=== PATIENT | male | born 1940 | race Caucasian/White ===

== ENCOUNTER 2016-11-04 02:02 | Inpatient (IN) | payer MEDICARE ==
[2016-11-04] MEDS ORDERED: ONDANSETRON HCL 4 MG/2 ML VIAL ONE (02:40)
[2016-11-04 02:41] LABS: BASOPHIL# 0.3 X 10^3uL (0.0-0.1); BASOPHILS 2.5 % (0.0-2.0); EOSINOPHILS 0.4 % (0.0-6.0); HEMATOCRIT 45.8 % (42.0-54.0); HEMOGLOBIN 15.7 g/dL (14.0-18.0); LYMPHOCYTES 7.3 % (20.0-40.0); LYMPHOCYTES# 0.8 X 10^3uL (0.8-3.8); MEAN CELL VOLUME 87.7 fL (80.0-100.0); MEAN CORPUS. HGB CONCENTRATION 34.3 g/dL (32.0-36.0); MEAN CORPUSCULAR HEMOGLOBIN 30.1 pg (29.0-35.0); MEAN PLATELET VOLUME 9.8 fL (7.4-10.4); MONOCYTES 6.9 % (2.0-10.0); MONOCYTES# 0.8 X 10^3uL (0.2-1.0); NEUTROPHILS 82.9 % (54.0-75.0); NEUTROPHILS# 9.5 X 10^3uL (2.6-6.7); RED BLOOD COUNT 5.22 X 10^6uL (4.20-6.10); RED CELL DISTRIBUTION WIDTH 14.1 % (11.5-14.5); WHITE BLOOD COUNT 11.4 X 10^3uL (3.9-10.7)
[2016-11-04 02:52] LABS: ALBUMIN 4.5 g/dL (3.5-5.0); BILIRUBIN, DIRECT 0.2 mg/dL (0.0-0.4); BILIRUBIN, TOTAL 1.3 mg/dL (0.2-1.3); CALCIUM 9.4 mg/dL (8.4-10.2); POTASSIUM 4.5 mmol/L (3.5-5.1); TOTAL PROTEIN 7.8 g/dL (6.3-8.2)
[2016-11-04 03:31] LABS: BLOOD UREA NITROGEN 22 mg/dL (9-20); CHLORIDE 107 mmol/L (98-107); EST GLOMERULAR FILTRATION RATE 57 mL/min; GLUCOSE 152 mg/dL (70-100); POTASSIUM 4.3 mmol/L (3.5-5.1); SODIUM 141 mmol/L (137-145)
--- NOTE | 2016-11-04 03:58 | CT REPORT ---
HISTORY: Abdominal pain COMPARISON: None. TECHNIQUE: This examination was performed using automated exposure control, adjustment of mA or kV according to patient size, and/or use of iterative reconstruction technique. Multiple contiguous axial images were obtained from the lung bases through the pubic symphysis following administration of intravenous con trast. 100cc Isovue 300 and contrast. FINDINGS: There is atelectasis at both lung bases. Abdomen/pelvis: There is a 2.0 cm simple cyst in the left hepatic lobe. Liver is otherwise unremarkab le. Gallbladder is unremarkable. The spleen is normal in appearance. There is no pancreatic mass or ductal dilatation. The adrenal glands are unremarkable. There are 3 simple cysts in the right kidney, largest measuring 2.5 cm. Left kidney is unremarkable. There is no hydronephrosis. The stomach and small bowel are unremarkable. There is colonic diverticulosis but no focus of acute d iverticulitis. No significant free fluid is noted. The appendix is dilated measuring up to 14 mm and there is mild adjacent fat stranding. There is no a bscess formation or evidence of perforation. Aortic atherosclerosis is present without aneurysm. No pathologic adenopathy is identified. There i s multilevel degenerative disc disease in the thoracolumbar spine. IMPRESSION: 1. Dilated appendix measuring up to 14 mm with mild adjacent inflammatory changes is suspicious for e jeff acute appendicitis. No evidence of perforation or abscess formation. Surgical consultation is re commended. 2. Colonic diverticulosis. No focus of acute diverticulitis. 3. Aortic atherosclerosis without aneurysm. Results were discussed with Dr. To at 3:56 AM 11/04/2016. Final Electronic Signature: This report was electronically signed by Anthony Cervantes MD on 11/04/2016 3 :56 AM. [email or web address] /
[2016-11-04] MEDS ORDERED: HOME MEDICATION LIST NEEDED 1 EA EACH MISC ONE (04:15)
[2016-11-04 04:24] LABS: INR 0.9
--- NOTE | 2016-11-04 04:25 | RADIOLOGY REPORT ---
HISTORY: Preoperative chest radiograph. COMPARISON: None. FINDINGS: 1 view of the chest obtained. There is no consolidation. There is no pleural effusion. There is no pneumothorax. Cardiac silhouette is mildly enlarged. There is an implanted cardiac defibrillator. There is no abnormality of the pulmonary vessels. There is no focal lung parenchymal nodule. There is no bone lesion. IMPRESSION: 1. Mildly enlarged cardiac silhouette. Implanted cardiac defibrillator. Final Electronic Signature: This report was electronically signed by Anthony Cervantes MD on 11/04/2016 4 :22 AM. [email or web address] /
[2016-11-04] MEDS ORDERED: IPRATROPIUM/ALBUTEROL 0.5/3 MG 3 ML AMPUL.NEB INHALATION ONE (04:37)
[2016-11-04] MEDS ORDERED: FUROSEMIDE 20 MG/2 ML VIAL ONE (04:37)
[2016-11-04 04:45] LABS: URINE MUCUS NONE SEEN (Up to 25%)
[2016-11-04 04:55] VITALS: PULSE 80
[2016-11-04] MEDS ORDERED: NORMAL SALINE 1,000 ML IV SCH (05:00)
--- NOTE | 2016-11-04 05:02 | ER PHYSICIAN DOCUMENTATION ---
Physician Documentation [facility] Name:Samuel Green Age:76 yrs Sex:Male :1940 Arrival Date:11/04/2016 Time:02:02 Bed1 Private MD:Physician, No ED Nathan Hall Disposition: 11/04/16 04:07 Admit ordered for Yoshi Bhatt. Preliminary diagnosis are Appendicitis, Acute NOS, Dehydration. - Bed requested for Medical/Surgical. - Condition is Fair. - Problem is new. - Symptoms are unchanged. 23 HR OBS No HPI: 11/04 02:30 This 76 yrs old Male presents to ER via Walk In with complaints of Abdominal cd Pain. 02:30 The patient presents with abdominal pain right lower quadrant, constipation, the cd patient or guardian reports hard stools. Onset: The symptoms/episode began/occurred acutely, yesterday, at 19:30. The symptoms radiate to the patient reports the pain started throughout his abdomen and has localized to the RLQ. Associated signs and symptoms: Pertinent positives: anorexia, constipation, nausea, Pertinent negatives: blood in stools, diarrhea, fever, shortness of breath, vomiting, vomiting blood. The symptoms are described as constant, dull. Severity of pain: At its worst the pain was moderate in the emergency department the pain is unchanged. The patient has not experienced similar symptoms in the past. The patient has not recently seen a physician. Historical: - Allergies: Zosyn; - Home Meds: 1. Aspirin Oral 2. carvedilol oral 3. Lasix Oral 4. spironolactone Oral 5. losartan oral 6. Potassium Chloride Oral - PMHx: CAD; Cancer; - PSHx: prostatectomy; PACEMAKER; - Tetanus: < 10 years. - Ebola Screening: : Patient denies exposure to infectious person. Patient denies travel to an Ebola-affected area in the 21 days before illness onset. . - Immunization history: Flu Vaccine < 1 year. - Social history: Smoking status: Patient uses tobacco products, light tobacco smoker. Patient uses alcohol on a daily basis. ROS: 03:29 ENT: Negative for injury, pain, epistaxis and discharge. cd Neck: Negative for injury, pain, stiffness and swelling. Cardiovascular: Negative for chest pain, palpitations, edema and pleuritic pain. Respiratory: Negative for shortness of breath, dyspnea on exertion, cough, sputum production, wheezing, hemoptysis and pleuritic chest pain. Back: Negative for injury, pain or muscle spasms. : Negative for injury, bleeding, discharge, swelling, dysuria, frequency or urgency. MS/Extremity: Negative for injury, deformity, edema, calf tenderness, pain or coldness. Skin: Negative for injury, rash, itching and discoloration. 03:29 Neuro: Negative for headache, weakness, numbness, tingling, and seizure. cd 03:29 Constitutional: Positive for poor PO intake, Negative for chills, fever. 03:29 Abdomen/GI: Positive for abdominal pain, nausea, constipation, anorexia, Negative for vomiting, diarrhea, abdominal distension, hematemesis, black/tarry stool, rectal bleeding. 03:29 All other systems are negative. Exam: Head/Face: Normocephalic, atraumatic. ENT: Nares patent. No nasal discharge, no septal abnormalities noted. Tympanic membranes are normal and external auditory canals are clear. Oropharynx with no redness, swelling, or masses, exudates, or evidence of obstruction, uvula midline. Mucous membranes dry 03:29 Neck: Trachea midline, no thyromegaly or masses palpated, and no cervical cd lymphadenopathy. Supple, full range of motion without nuchal rigidity, or vertebral point tenderness. No Meningismus. Skin: Warm, dry with normal turgor. Normal color with no rashes, no lesions, and no evidence of cellulitis. MS/ Extremity: Pulses equal, no cyanosis. Neurovascular intact. Full, normal range of motion. 03:29 Neuro: Awake and alert, GCS 15, oriented to person, place, time, and situation. Cranial nerves II-XII grossly intact. Motor strength 5/5 in all extremities. Sensory grossly intact. Cerebellar exam normal. Normal gait. 03:29 Constitutional: The patient appears alert, awake, non-diaphoretic, non-toxic, well developed, well nourished, anxious, obese, in obvious distress, moderately distressed. 03:29 Cardiovascular: Rate: normal, Rhythm: regular, Pulses: no pulse deficits are appreciated, Heart sounds: normal. 03:29 Respiratory: the patient does not display signs of respiratory distress, Respirations: normal, no acute changes, Breath sounds: are normal, clear throughout. 03:29 Abdomen/GI: Inspection: abdomen appears normal, Bowel sounds: diminished, Palpation: moderate abdominal tenderness, in the right lower quadrant, mass, is not appreciated, rebound tenderness, is not appreciated, voluntary guarding, is elicited in the right lower quadrant, involuntary guarding, is not appreciated, no appreciated organomegaly, Indicators: McBurney's point is tender, Benjamin's sign is negative. 03:29 Back: CVA tenderness, is absent. 03:29 : Rectal exam: Rectal tone: normal, Stool: brown, soft, Guaiac testing: results were negative for occult blood. Vital Signs: 02:22 BP 133 / 82; Pulse 80; Resp 20; Temp 96.8(TE); Pulse Ox 92% on R/A; Weight 106.59 kg; lb Height 5 ft. 8 in. (172.72 cm); Pain 4/10; 04:13 BP 128 / 74; Pulse Ox 89% on 2 lpm NC; Pain 3/10; lb 02:22 Body Mass Index 35.73 (106.59 kg, 172.72 cm) lb [place] Coma Score: 03:29 Eye Response: spontaneous(4). Verbal Response: oriented(5). Motor Response: obeys cd commands(6). Total: 15. MDM: 02:15 Data interpreted: Pulse oximetry: on room air is 92 %. Interpretation: normal. cd 02:22 Patient medically screened. cd 02:25 Data reviewed: vital signs, nurses notes, old medical records, lab test result(s), and cd as a result, I will continue to observe the patient, order radiologic studie(s), CT scan, administer IV fluids, NS bolus, NS maintenence, prescribe pain medication, Dilaudid. 03:20 Response to treatment: the patient's symptoms have mildly improved after treatment, and cd as a result, I will continue to observe the patient, order radiologic studie(s), CT scan. 03:34 Differential diagnosis: appendicitis, bowel obstruction, cholecystitis, diverticulitis, cd Irritable bowel syndrome, Mesenteric ischemia or infarction, non-specific abd pain, Pyelonephritis, Ureterolithiasis. 04:00 Physician consultation: Yoshi Bhatt MD was called at 03:55, was contacted at 03:55, cd regarding admission, to the floor, consult, patient's condition, need to evaluate the patient as soon as possible, and will see patient in inpatient room, shortly, later today. 04:04 Counseling: I had a detailed discussion with the patient and/or guardian regarding: the cd historical points, exam findings, and any diagnostic results supporting the discharge/admit diagnosis, lab results, radiology results, the need for further work-up and treatment in the hospital, risk of leaving the Emergency Department. 04:06 Medication response: The patient's symptoms are unchanged despite medication cd administration. Admission orders: after a detailed discussion of the patient's condition and case, the admit orders are written by me. 04:27 EKG attached lb 11/04 03:03 Order name: BASIC METABOLIC PANEL EDTX 11/04 03:04 Interpretation: Normal Except: BLOOD UREA NITROGEN 24; CREATININE 1.4; Dehydration. 11/04 03:03 Order name: HEPATIC PANEL EDTX 11/04 03:04 Interpretation: Normal. 11/04 03:03 Order name: LIPASE EDTX 11/04 03:04 Interpretation: Normal. 11/04 03:04 Order name: CBC AUTO DIF, MDIF/RMOR IF IND EDMS 11/04 03:05 Interpretation: Normal Except: WHITE BLOOD COUNT 11.4; NEUTROPHILS 82.9; Elevated WBC cd with Left shift. 11/04 03:32 Order name: BASIC METABOLIC PANEL; Complete Time: 04:02 EDMS 11/04 04:02 Interpretation: Normal Except: GLUCOSE 152; Hyperglycemia. 11/04 04:26 Order name: PROTIME/INR EDTX 11/04 05:04 Order name: BNP,NT-PRO EDTX 11/04 05:12 Order name: UA W/ MICRO -CULTURE IF IND EDTX 11/04 04:01 Order name: CAT SCAN; ABD/PEL W [id number]; Complete Time: 04:03 EDMS 11/04 04:03 Interpretation: Abnormal: Early Acute Appendicitis without Perforation. 11/04 04:27 Order name: CHEST; SINGLE VIEW [id number]; Complete Time: 04:43 EDMS 11/04 04:43 Interpretation: Normal Except: See Radiologist Reading. 11/04 02:23 Order name: NPO; Complete Time: 02:35 cd 11/04 04:08 Order name: EKG - 12 Lead; Complete Time: 04:12 cd Dispensed Medications: 02:34 Drug: Zofran 4 mg; Route: IVP; Infused Over: 2 mins; Site: right antecubital; lb 04:14 Follow up: Response: Nausea is decreased lb 02:34 Drug: Dilaudid 0.5 mg; Route: IVP; Site: right antecubital; lb 04:14 Follow up: Response: Pain is decreased lb 02:34 Drug: NS 0.9% 1000 ml; Route: IV; Rate: bolus; Site: right antecubital; lb 04:14 Follow up: IV Status: Completed infusion; IV Intake: 1000ml lb 03:24 Drug: NS 0.9% 1000 ml; Route: IV; Rate: 150 ml/hr; Site: right antecubital; fc 05:01 Follow up: IV Status: Infusion continued upon admission; IV Intake: 150ml lb 04:13 Drug: Dilaudid 0.5 mg; Route: IVP; Site: right antecubital; lb 04:19 Follow up: Response: Pain is decreased lb 04:24 Drug: Lasix 20 mg; Route: IVP; Site: left antecubital; lb 04:25 Drug: DuoNeb (Albuterol 2.5 mg, Atrovent 0.5 mg); 3 ml; Route: Nebulizer; lb Signatures: Nathan To MD MD cd collins, floyd fc Bollock, Lynda lb
--- NOTE | 2016-11-04 05:02 | ER NURSING DOCUMENTATION ---
Nurse's Notes [facility] Name:Samuel Green Age:76 yrs Sex:Male :1940 Arrival Date:11/04/2016 Time:02:02 Bed1 Private MD:Physician, No Diagnosis:Appendicitis, Acute NOS;Dehydration Presentation: 11/04 02:18 Presenting complaint: Patient states: abd pain since 7 pm, diffuse at first, now lb located to [facility]. denies fever, although has had chills, some nausea. Transition of care: [place]. Notified ED Physician of Dr. To notified. 02:18 Acuity: ANGELI 2 lb 02:18 Method Of Arrival: Walk In Triage Assessment: 02:21 General: Appears uncomfortable, Behavior is appropriate for age, pleasant. Pain: lb Complains of pain in right upper quadrant Pain does not radiate. Pain currently is 4 out of 10 on a pain scale. Quality of pain is described as aching, dull, Pain began 1 day ago. GI: Abdomen is obese, Bowel sounds present X 4 quads. Abd is soft Abdomen is tender to palpation in right upper quadrant. Historical: - Allergies: Zosyn; - Home Meds: 1. Aspirin Oral 2. carvedilol oral 3. Lasix Oral 4. spironolactone Oral 5. losartan oral 6. Potassium Chloride Oral - PMHx: CAD; Cancer; - PSHx: prostatectomy; PACEMAKER; - Tetanus: < 10 years. - Ebola Screening: : Patient denies exposure to infectious person. Patient denies travel to an Ebola-affected area in the 21 days before illness onset. . - Immunization history: Flu Vaccine < 1 year. - Social history: Smoking status: Patient uses tobacco products, light tobacco smoker. Patient uses alcohol on a daily basis. Screenin:23 Infectious Disease Risk None. Abuse screen: Denies threats or abuse. Denies injuries lb from another. Nutritional screening: No deficits noted. Assessment: 02:23 See Triage Assessment done by same RN. lb Vital Signs: 02:22 BP 133 / 82; Pulse 80; Resp 20; Temp 96.8(TE); Pulse Ox 92% on R/A; Weight 106.59 kg; lb Height 5 ft. 8 in. (172.72 cm); Pain 4/10; 04:13 BP 128 / 74; Pulse Ox 89% on 2 lpm NC; Pain 3/10; lb 02:22 Body Mass Index 35.73 (106.59 kg, 172.72 cm) lb [place] Coma Score: 03:29 Eye Response: spontaneous(4). Verbal Response: oriented(5). Motor Response: obeys cd commands(6). Total: 15. ED Course: 02:09 Patient arrived in ED. lb 02:09 Physician, No is Private Physician. lb 02:18 Anju Varela is Primary Nurse. lb 02:19 Triage completed. lb 02:22 Nathan To MD is Attending Physician. cd 02:23 Valuables Remains with patient Patient has correct armband on for positive lb identification. Placed in gown. Bed in low position. Call light in reach. Side rails up X 1. 03:[address] ms 03:[address] ms 04:07 Yoshi Bhatt MD is Admitting Physician. cd 04:19 EKG done. (by ED staff). lb 04:27 EKG attached lb Administered Medications: 02:34 Drug: Zofran 4 mg; Route: IVP; Infused Over: 2 mins; Site: right antecubital; lb 04:14 Follow up: Response: Nausea is decreased lb 02:34 Drug: Dilaudid 0.5 mg; Route: IVP; Site: right antecubital; lb 04:14 Follow up: Response: Pain is decreased lb 02:34 Drug: NS 0.9% 1000 ml; Route: IV; Rate: bolus; Site: right antecubital; lb 04:14 Follow up: IV Status: Completed infusion; IV Intake: 1000ml lb 03:24 Drug: NS 0.9% 1000 ml; Route: IV; Rate: 150 ml/hr; Site: right antecubital; fc 05:01 Follow up: IV Status: Infusion continued upon admission; IV Intake: 150ml lb 04:13 Drug: Dilaudid 0.5 mg; Route: IVP; Site: right antecubital; lb 04:19 Follow up: Response: Pain is decreased lb 04:24 Drug: Lasix 20 mg; Route: IVP; Site: left antecubital; lb 04:25 Drug: DuoNeb (Albuterol 2.5 mg, Atrovent 0.5 mg); 3 ml; Route: Nebulizer; lb Intake: 04:14 IV: 1000ml; Total: 1000ml. lb 05:01 IV: 150ml; Total: 1150ml. lb Outcome: 04:07 Decision to Admit by Provider. cd 04:15 Admitted to Med/surg accompanied by nurse, via stretcher, with oxygen. lb 04:15 Condition: improved 04:15 Report given to Dustin RN 04:15 Instructed on need to admit 05:01 Patient left the ED. lb Signatures: Nathan To MD MD cd Strickland, Mary ms collins, floyd fc Bollock, Lynda lb
[2016-11-04 05:11] LABS: URINE APPEARANCE CLEAR; URINE BACTERIA NONE SEEN (<10/hpf); URINE BILIRUBIN NEGATIVE (NEGATIVE); URINE BLOOD 10 Ery/uL (1+) (NEGATIVE); URINE COLOR YELLOW; URINE GLUCOSE NORMAL (NEGATIVE); URINE KETONE NEGATIVE (NEGATIVE); URINE LEUKOCYTE ESTERASE NEGATIVE (NEGATIVE); URINE NITRITE NEGATIVE (NEGATIVE); URINE PROTEIN 10mg/dL (trace) (NEG - TRACE); URINE RBC 0-5/hpf (0-5/hpf); URINE SQUAMOUS EPITHELIAL CELL 0-5/hpf (<= 15/hpf); URINE UROBILINOGEN NORMAL (NEG-1mg/dL); URINE WBC 0-4/hpf (0-4/hpf)
[2016-11-04] MEDS ORDERED: ACETAMINOPHEN 1,000 MG/100 ML VIAL IV PRN (05:39)
[2016-11-04] MEDS ORDERED: ONDANSETRON HCL 4 MG/2 ML VIAL IV PRN (05:59)
[2016-11-04] MEDS ORDERED: cefOXITIN 1 GM in NORMAL SALINE MINI-BAG+ 100 ML IV SCH (06:00)
[2016-11-04] MEDS ORDERED: LACTATED RINGERS 1,000 ML IV SCH (06:00)
[2016-11-04 06:44] VITALS: BP 118/54; RESP 18; TEMP 98.5
[2016-11-04] MEDS ORDERED: WATER IRRIG 1,000 ML BOTTLE ONE (07:13)
[2016-11-04 09:16] VITALS: O2SAT 93
--- NOTE | 2016-11-04 09:51 | HISTORY & PHYSICAL ---
DATE OF ADMISSION: 11/04/16 ATTENDING PHYSICIAN: Yoshi Bhatt MD CHIEF COMPLAINT: Abdominal pain. HISTORY OF PRESENT ILLNESS: This is a 76-year-old male who noticed abdominal pain around 7:00 p.m. The pain at that time was diffuse in nature. As the night wore on, he could not get comfortable and could not sleep. He noticed abdominal distention, some mild nausea but no vomiting. He also felt somewhat chilled. Around 2:00 a.m. he came to the Emergency Room and was evaluated and was noted on CT to have what appeared to be an early appendicitis. Currently he notes that the pain is about a 2-3/10 currently localized in the right lower quadrant. He still feels bloated and has some mild nausea. REVIEW OF SYSTEMS CONSTITUTIONAL: He felt fine. He and his had travelled here from [place] where they usually live. He has a cabin here which he stays at intermittently throughout the summer and fall. He has been here since around Monday. HEENT: Some seasonal allergies. CARDIAC: He had an myocardial infarction about 3 years ago, this was asymptomatic. About 1-1/2 year ago, he had a combination defibrillator and pacemaker placed for arrhythmias. He says that the defibrillator has never gone off at . He has had some congestive heart failure in the past and the arrhythmias. Since he has been in [place], he denies any chest pain. PULMONARY: He is a long time smoker. At this time, he smokes 2 cigarettes a day and in the past he had a 20 year history of heavy smoking. He thinks he has some mild chronic obstructive pulmonary disease. He does wear CPAP at night. GI: Has had no history of gallbladder disease. No history of peptic ulcer disease. Has some diverticulosis noted on colonoscopy. He had a colonoscopy about 5 years ago, which did show a few polyps and diverticulosis. He has never had any GI bleeding. He had a transrectal biopsy of the prostate, which perforated the rectum and he ended up needing long-term IV antibiotics for this treatment. : He has some renal insufficiency. He has history of prostate cancer. No history of kidney stones. He has had a prostatectomy in the past. MUSCULOSKELETAL: Some arthritic changes, but no major joint issues. No chronic back pain. NEUROLOGIC: No history of seizure or stroke. ENDOCRINE: He has been on Metformin which has recently been stopped. He has been told he is glucose intolerant. He denies any thyroid disease. HEMATOPOIETIC: No deep vein thrombosis. No anemia. FAMILY HISTORY: Unremarkable. 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 He has about a 20-year history of heavy smoking. He continues to smoke 1-2 cigarettes per day. MEDICATIONS Spironolactone 25 mg q.day. Aspirin 81 mg p.o. daily. Carvedilol 6.25 mg b.i.d. Lasix 20 mg daily. Potassium 20 MEQ daily. Losartan 25 mg daily. Pravastatin 40 mg daily. Flonase PRN. Stiolto inhalation spray PRN. Rosie PRN. Occasionally wears a nicotine patch. ALLERGIES: Reaction to Zosyn after approximately 24 doses of it. He was told not to take that again. He has no other medical allergies. PAST MEDICAL HISTORY 1. Previous history of myocardial infarction. 2. Previous history of arrhythmias with placement of pacemaker and defibrillator. 3. Probable mild chronic obstructive pulmonary disease. 4. History of prostate cancer. 5. History of glucose intolerance. 6. History of congestive heart failure. PAST SURGICAL HISTORY 1. Prostatectomy which I believe is laparoscopic in the past. This was in 2009. 2. Pacemaker placement which was in 2016. PHYSICAL EXAMINATION VITAL SIGNS: Blood pressure 124/70, pulse 80. He is 94% saturated on 2 liters nasal cannula. He is afebrile. GENERAL: He is an obese male who is in no acute distress sitting up at the bedside. HEART: Irregular with distant heart sounds. LUNGS: Clear. There were a few crackles a the left base which cleared with several respirations. ABDOMEN: Rare bowel sounds. He is tender in the right lower quadrant. He does have a Rovsing sign present. /RECTAL: Deferred. EXTREMITIES: No ankle edema noted. Extremities are warm and well perfused. LABORATORY DATA: Elevation in his white count to 11.4. His chemistry shows his sugars are slightly elevated at 150. His BMP is otherwise in the normal range. His BNP was 8,410. CT SCAN ABDOMEN/PELVIS: Shows some renal cysts on the right and what appears to be a dilated appendix consistent with appendicitis. It appears that the base of the appendix has air in it. The distal portion of the appendix appears enlarged , I do not see a fecalith. There is no evidence of perforation. IMPRESSION 1. Acute appendicitis. 2. History of coronary artery disease and arrhythmias with history of previous myocardial infarction. 3. History of glucose intolerance. 4. Probable chronic obstructive pulmonary disease. PLAN: Arrange for Cardiology and Medicine consultation, and if cleared, proceed with surgery. GLORIA
--- NOTE | 2016-11-04 10:46 | CONSULTATION ---
DATE OF CONSULTATION: 11/04/16 HAT BLOCK MAKER: Raymon Kramer MD CONSULTATION: The patient is a 76-year-old gentleman who was admitted this morning by Dr. Yoshi Bhatt for acute appendicitis. I have reviewed his history and physical, examined him and reviewed his studies, and agree that this is consistent with appendicitis without perforation or other complication. His cardiac status is quite marginal. Review of his echocardiogram reveals that an EF of 20% with generalized severe hypokinesis. He has an AICD pacemaker in place. He reports that as never gone off. He gets quite short of breath with minimal exertion. I discussed the situation with anesthesiology They do not feel he is safe to do an operation up here in [place]. I concur that his risk if quite high and his margin for error in cardiac complication is very narrow. Cardiology did see him and thought he was stable, but did warn about very careful with fluids, to not put him into congestive heart failure. I discussed in detail with the patient and his his situation. It would be to his best safety to be in a facility where he could be monitored and provided more intensive cardiac care if needed. I have arranged transfer to [facility] under the care of Dr. Barry Ferro who accepts this patient. Arrangements are being made for transport. The patient agrees to this. He has received IV antibiotics and is clinically stable for transportation. We anticipate surgery later today. GLORIA
--- NOTE | 2016-11-04 16:35 | CONSULTATION ---
DATE OF CONSULTATION: 11/04/16 FOREST SUPERVISOR: Guadalupe Thurston MD REQUESTING PHYSICIAN: Yoshi Bhatt MD REASON FOR CONSULTATION: Congestive heart failure, preoperative evaluation. HISTORY OF PRESENT ILLNESS: The patient is a 76-year-old male patient admitted to [facility] early this morning with probable acute appendicitis. He will likely need an operation later today. The patient and his live in [place], [place] and spend the summer months in [place]. They arrived in [place] earlier this week. He has a history of nonischemic cardiomyopathy with an EF of 20%. This was diagnosed 2 years ago in [place]. He reports having an angiogram done and was told his coronary arteries were okay. He has not received any prior revascularization procedures. He also had an ICD placed around that time. He has never been shocked by his device. Prior to developing abdominal pain recently, he generally had been feeling well and at baseline. He has chronic dyspnea on exertion. He denies exertional chest pain. He has no paroxysmal nocturnal dyspnea or orthopnea. He has mild lower extremity edema at times. He had a resting echocardiogram in [place] in September, LVEF was reported to be 20% with significant left ventricular enlargement and global hypokinesis. He has mild-moderate mitral valve regurgitation. PAST MEDICAL HISTORY 1. Sleep apnea. He is on CPAP. 2. He has a history of hyperlipidemia. 3. Type 2 diabetes. 4. Obesity. 5. Hypertension. 6. Prior prostate cancer. FAMILY HISTORY: No premature cardiovascular disease. SOCIAL HISTORY: He smokes a few cigarettes per week. He drinks 2 drinks per day. He is . 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 HOME MEDICATIONS Aspirin 81 mg p.o. daily. Carvedilol 6.25 mg b.i.d. Rosie. Flonase. Lasix 20 mg p.o. b.i.d. Losartan 25 mg q.day. Potassium 20 MEQ b.i.d. Pravastatin 40 mg daily. Aldactone 25 mg daily. ALLERGIES: Crestor, Lipitor and Zosyn. REVIEW OF SYSTEMS GENERAL: No recent stroke or transient ischemic attack complaints. He has had no syncope. He has had no shocks from his device. HEENT: No dysphagia. CARDIAC: As above. RESPIRATORY: No cough. No fevers or chills. No nausea or vomiting. OTHER: No significant arthritis. No rash. PHYSICAL EXAMINATION VITAL SIGNS: Blood pressure 118/54, pulse 80 and regular. O2 saturation 93% on 4 liters. He is afebrile. GENERAL: Obese male in no apparent distress. Alert and oriented x3. NECK: Neck veins not elevated. CHEST: Lungs clear to auscultation, no wheeze or rale. CARDIAC: S1 and S2 normal are normal. No murmur, gallop or rub. ABDOMEN: Soft but tender to palpation. EXTREMITIES: Trace edema. NEUROLOGIC: Nonfocal. LABORATORY DATA: White blood cell count 11.4, hemoglobin 15.7, potassium 4.5, creatinine 1.4. NT-pro-BNP 8,410. IMAGING: CT scan of his abdomen and pelvis demonstrating a dilated appendix with mild adjacent inflammatory changes, suspicious for early acute appendicitis. No evidence of perforation of abscess formation. He has chronic diverticulosis but no acute diverticulitis. EKG: Reviewed by me now demonstrates sinus rhythm with ventricular pacing, 100% captured. IMPRESSION 1. Nonischemic cardiomyopathy, LVEF 20%, NYJ functional class 2, essentially euvolemic on exam. 2. Status post empirically placed ICD for the prevention of sudden cardiac , he has received no shocks. 3. Appendicitis. 4. Type 2 diabetes mellitus. 5. Obesity. 6. Sleep apnea, on CPAP. RECOMMENDATION: This patient will be at some increased surgical risk given his known cardiovascular disease as outlined above. At this point, however, he appears stable from a cardiovascular status and is at baseline. He should continue his current congestive heart failure medical regimen if able. He needs close hemodynamic monitoring in the perioperative period. During his surgery, a magnet can be placed on his ICD. His rhythm will need to be monitored continuously while a magnet is in place. Judicial use of IV fluids given his poor left ventricular systolic function. The surgical and anesthesia team managing the patient will make a determination whether the surgery will occur in [place] or perhaps at a regional facility in [facility]. Findings and recommendations were discussed with the patient, his and surgeon. All questions answered. Thank you for asking us to participate in the care of this very nice patient. GLORIA
--- NOTE | 2016-11-08 09:07 | DC SUMMARY: Gen Surgery Note ---
Discharge Summary: Surg/OB Provider: Date of Admission: 11/04/16 Admitting Provider: TORRIE FRIEDMAN MD Attending Provider: TORRIE FRIEDMAN MD Discharging Provider: TORRIE FRIEDMAN MD Primary Care Provider: Discharge Date: 11/04/16 - Diagnosis (1) Acute appendicitis with localized peritonitis Status: Acute (2) Atherosclerotic heart disease of [place] coronary artery without angina pectoris Status: Chronic (3) Old myocardial infarction Status: Chronic (4) Acute on chronic renal insufficiency Status: Chronic (5) COPD (chronic obstructive pulmonary disease) Status: Chronic Hospital Course: Mr. SAMPSON is a 76 year old male admitted through the ED with findings on CT and PE of acute appendicitis. He was seen by cardiology for pre op clearance and cleared;however, anesthesia wanted him at a higher level of care for his surgery because of a 20% ejection fraction on recent echocardiogram. He was therefore transferred by Dr. Kramer to [facility] for the surgery. Discharge Overall discharge status: patient is not back to baseline Gen Surgery: Discharge Exam - Latest Vital Signs and I&O Latest Vital Signs/I&O: Vital Signs Temp 36.9 C 11/04/16 06:43 Pulse 80 11/04/16 06:43 Resp 18 11/04/16 06:43 BP 118/54 11/04/16 06:43 Pulse Ox 93 11/04/16 08:00 - Exam Respiratory exam: clear to auscultation Abdomen exam: tender (RLQ), bowel sounds (hypoactive), soft Discharge Summary Data - Medication History Medication History: Home Medications Acetaminophen [Tylenol*] 1 - 2 tab PO QID PRN 11/04/16 Carvedilol [Coreg] 6.25 mg PO BID 11/04/16 Fexofenadine HCl [Fexofenadine HCl*] 180 mg PO DAILY PRN 11/04/16 Fluticasone Nasal [Flonase Nasal [place]*] 1 spr NASAL DAILY 11/04/16 Furosemide [Lasix*] 20 mg PO EVERY MORNING 11/04/16 Losartan Potassium [Cozaar*] 25 mg PO DAILY 11/04/16 Nicotine [Nicotine 14 mg*] 1 patch TOPICAL DAILY 11/04/16 Potassium Chloride ER [K-Dur*] 20 meq PO BID 11/04/16 Spironolactone [Aldactone*] 25 mg PO EVERY MORNING 11/04/16 Tiotropium Br/Olodaterol HCl [Stiolto Respimat Inhal [place]] 1 puff PO DAILY aspirin EC [Aspirin EC*] 81 mg PO EVERY MORNING 11/04/16 Procedures and tests throughout hospitalization: Completed Lab Orders 11/04/16 04:30 UA W/ MICRO -CULTURE IF IND [URINE] Stat Pending Orders 11/04/16 04:33 Echocardiogram [CARDIO] Stat 11/04/16 04:50 Telemetry monitoring CONTINUOUS TELE 11/04/16 07:13 CPAP Ventilatory Support (RT) HS 11/04/16 10:25 Discharge ONCE
== END 2016-11-04 10:25 | DRG 373 ==
LOC: ER 02:02 → IN 04:31
PROVIDERS: ADMIT Surgery; ATTEND Surgery
DX: K35.3 Acute appendicitis with localized peritonitis (principal); I50.9 Heart failure, unspecified; I25.10 Atherosclerotic heart disease of native coronary artery without angina pectoris; I25.2 Old myocardial infarction; E11.9 Type 2 diabetes mellitus without complications; E66.9 Obesity, unspecified; G47.30 Sleep apnea, unspecified; N28.9 Disorder of kidney and ureter, unspecified; J44.9 Chronic obstructive pulmonary disease, unspecified; Z85.46 Personal history of malignant neoplasm of prostate; Z79.899 Other long term (current) drug therapy; Z95.810 Presence of automatic (implantable) cardiac defibrillator
CPT/HCPCS: 36415; 71010; 74177; 80048; 80076; 81001; 83690; 83880; 85025; 85610; 93005; 94640; 94660; 96361; 96374; 96375; 96376; 99285; A0425; A0427; A4217; J0694; J1170; J1940; J2405; J7120; J7620